=== PATIENT | male | born 1975 | race African-American/Black ===

== ENCOUNTER 2017-12-12 13:04 | Emergency (ER) | payer SELFPAY ==
[2017-12-12 13:10] VITALS: BP 143/83; BMI 30.8
[2017-12-12] MEDS ORDERED: ADACEL TDaP IM ONE ×2 (15:49→15:54)
[2017-12-12] MEDS ORDERED: MOTRIN TAB 800 MG PO STA (15:50)
[2017-12-12] MEDS ORDERED: ROCEPHIN VIAL 1 GM IM ONE (15:50)
[2017-12-12] MEDS ORDERED: BACTRIM DS TAB PO ONE ×2 (15:50→15:54)
[2017-12-12] MEDS ORDERED: XYLOCAINE 1 % (PLAIN) ONE (15:53)
[2017-12-12] MEDS ORDERED: MOTRIN TAB 800 MG PO ONE (15:54)
[2017-12-12] MEDS ORDERED: ROCEPHIN VIAL 1 GM ONE (15:54)
--- NOTE | 2017-12-12 15:54 | DR.GENAD ---
HPI - PCP Primary Care Physician: BRANDEN - Complaint/Symptoms Chief Complaint Doctors Comments: Patient is complaining of a lesion on the back of his left leg with bleeding. states he does not know if it is a cyst or a spider bite. states he has been putting medicines and bandages on it but it started bleeding the other day. States he is a patient of Dr. Wang and he does not know the last time he had a tetanus shot. States the pain is 5 of 10. He denies fever, chills, cold or cough. He has not problems walking. Chief Complaint:: PT C/O BUMP TO THE BACK OF HIS LT LEG. PT STATES THE BUMP WAS SMALL AND IT IS GETTING BIGGER AND IT IS ITCHING. PT STATES HE NOTICED THE BUMP ON HIS LEG LAST WEEK. - Nurses notes reviewed Nurses Notes Review: Yes - Source History Provided: Patient - Mode of Arrival Mode of Arrival: Ambulatory - Timing Onset of Chief Complaint: 12/05/17 Came on: Gradually - Duration Duration: Constant How lon Duration: Weeks - Location Location: left lower leg - Severity Severity: Mild - Modifying Factors Worsens:: nothing Improves:: nothing PMH - PMH Past Medical History: No Past Surgical History: Yes Surgical History: Cholecystectomy - Family History History of Family Medical Conditions: No - Social History Does any household member use tobacco: No Alcohol Use: Occasionally Do you use any recreational Drugs:: No Lives With: Alone Lives Where: Home - infectious screening In the last 2 months have you had wt loss of >10#?: NO Have you had fever, night sweats or hemotysis?: No Have you traveled outside the country in the last 6 months?: No Isolation: Standard ROS - Review of Systems Constitutional: No Symptoms Reported. negative: See HPI, Chills, Diaphoresis, Fever, Malaise, Weakness, Irritable, Fatigue, Loss of Appetite, Other Eyes: No Symptoms Reported ENTM: No Symptoms Reported, Nose Congestion Respiratoy: No Symptoms Reported. negative: See HPI, Productive Cough, Non- Productive Cough, Moist Cough, Dry Cough, Hacking Cough, Barking Cough, Brassy Cough, Orthopnea, Short of Breath, Stridor, Wheezing, Hemoptysis, Other Cardiovascular: No Symptoms Reported. negative: See HPI, Chest Pain, Edema, Palpitations, Syncope, Cyanosis, Skin Mottling, Other Gastrointestinal/Abdominal: No Symptoms Reported. negative: See HPI, Abdominal Pain, Constipation, Diarrhea, Nausea, Vomiting, Food Intolerance, Other Genitourinary: No Symptoms Reported. negative: See HPI, Discharge, Dysuria, Frequency, Hematuria, Pain, Bleeding, Other Neurological: No Symptoms Reported Musculoskeletal: No Symptoms Reported, Left, Leg (2 cm cyst with bleeding) Integumentary: No Symptoms Reported, Lesions, Wound (left lower leg) Hematologic/Lymphatic: No Symptoms Reported Endocrine: No Symptoms Reported Psychiatric: No Symptoms Reported. negative: See HPI, Anxiety, Depression, Hallucinations, Excessive crying, Suicidal, Other PE - Vital Signs Vitals: Temperature 97.2 F Pulse Rate 73 Respiratory Rate 20 Blood Pressure [Right Arm] 133/72 Blood Pressure 143/83 O2 Sat by Pulse Oximetry 100 - General Limitations: No Limitations General Appearance: Alert, In No Apparent Distress - Head Head Exam: Normal Inspection, Atraumatic, Normocephalic - Eyes Eye exam: Normal Appearance, PERRL, EOMI. negative: Scleral Icterus, Conjunctival Injection, Nystagmus, Miosis, Mydrasis, Periorbital Swelling, Periorbital Tenderness, Other - ENT ENT Exam: Normal Exam, Normal Oropharynx, Normal External Ear Exam, Mucous Membranes Moist, TM's Normal Bilaterally External Ear Exam: Normal External Inspection TM/Canal Exam: Bilateral Normal Nose Exam: Normal Nose Exam Mouth Exam: Normal Inspection Throat Exam: Normal Inspection - Neck Neck Exam: Normal Inspection, Full ROM, Trachea Midline. negative: Tenderness, Meningismus, Lymphadenopathy, Thyromegaly, Other - Chest Chest Inspection: Normal Inspection, Symmetric Chest Wall Rise - Respiratory Respiratory Exam: Normal Lung Sounds Bilat Respiratory Exam: Bilateral Clear to Auscultation - Cardiovascular Cardiovascular Exam: Regular Rate, Normal Rhythm, Normal Heart Sounds - Abdominal Exam Abdominal Exam: Normal Inspection, Normal Bowel Sounds, Soft. negative: Distention, Tenderness, Guarding, Rebound, Rigidity, Dimnished Bowel Sounds, Hyperactive Bowel Sounds, Hypoactive Bowel Sounds, Organomegaly, Trauma, Incision, Ascites, Mass, Bruit, Pulsatile Mass, Hernia, Other Abdominal Tenderness: negative: RUQ, RLQ, LUQ, LLQ, Epigastrium, Suprapubic, Diffuse, Mild, Moderate, Severe, Other - Extremities Extremities Exam: Normal Inspection, Full ROM, Tenderness (left lower leg with 2 cm pustular with drainage and dark blood), Normal Capillary Refill - Back Back Exam: Normal Inspection, Full ROM - Neurologic Neurological Exam: Alert, Oriented X3, CN II-XII Intact, Normal Gait, Reflexes Normal - Psychiatric Psychiatric Exam: Normal Affect, Normal Mood - Skin Skin Exam: Warm, Dry, Intact, Normal Color. negative: Rash, Cyanosis, Diaphoresis, Erythema, Pallor, Mottled, Other - Diagnosis Discharge Problem: Cellulitis of left lower leg, Sebaceous cyst - Discharge Plan Disposition: 01 HOME, SELF-CARE Condition: Stable Prescriptions: Cephalexin [KEFLEX CAP 500 MG *] 500 mg PO TID #30 cap Ibuprofen [MOTRIN TAB 800 MG *] 800 mg PO BID PRN #30 tab PRN Reason: Pain/Inflammation Sulfamethoxazole-Trimethoprim [BACTRIM DS TAB 800/160 MG *] 1 tab PO BID #20 tab - Follow ups/Referrals Follow ups/Referrals: Michael Wang [Primary Care Provider] - 3 days LLUVIA FELDMAN [STAFF PHYSICIAN] - 3 days - Instructions Instructions: Cellulitis, Adult, [id number], Sebaceous Cyst Removal
== END 2017-12-12 16:14 | disposition home or self-care (01) ==
LOC: ER 13:14
DX: L03.116 Cellulitis of left lower limb (principal); L72.3 Sebaceous cyst
CPT/HCPCS: 90471; 96372; 99282; J0696; J2001